=== PATIENT | female | born 1945 | race African-American/Black ===

== ENCOUNTER 2024-06-03 09:25 | Observation (INO) ==
--- NOTE | 2024-06-03 10:30 | Emergency Department Note ---
HPI - SOB/Dyspnea General Chief Complaint: SOB -Shortness of Breath Stated Complaint: SOB Time Seen by Provider: 06/03/24 10:17 Source: patient Mode of arrival: walk-in Limitations: no limitations History of Present Illness HPI Narrative: This is a 79 year old female patient that presents to the ER with c/o SOB and having Low O2 sats in the 70's this morning. Patient states she felt very SOB earlier this morning. Patient denies any chest pain, back pain,abdominal pain, fever, chills, numbness, tingling, weakness or N/V MD elicited complaint: Reports shortness of breath Pertinent past history: Reports COPD Onset (ago): hour(s) (4) Exacerbating factors: Reports nothing Relieving factors: Reports nothing Known history of: Reports COPD Associated symptoms: Reports denies other symptoms Treatment prior to arrival: Reports none Related Data Home Medications Medication Instructions Recorded Confirmed apixaban 5 mg tablet (Eliquis) 5 mg PO Q12H 11/20/23 11/20/23 atorvastatin 40 mg tablet 40 mg PO DAILY 11/20/23 11/20/23 lisinopril 20 mg tablet 20 mg PO DAILY 11/20/23 11/20/23 metoprolol succinate 50 mg 50 mg PO DAILY 11/20/23 11/20/23 tablet,extended release 24 hr nifedipine 60 mg tablet,extended 60 mg PO DAILY 11/20/23 11/20/23 release potassium chloride 10 mEq 10 meq PO DAILY 11/20/23 11/20/23 capsule,extended release semaglutide 0.25 mg or 0.5 mg (2 0.5 mg subcut .weekly 11/20/23 11/20/23 mg/3 mL) subcutaneous pen injector (Ozempic) sitagliptin phosphate 100 mg 100 mg PO DAILY 11/20/23 11/20/23 tablet (Januvia) Allergies Allergy/AdvReac Type Severity Reaction Status Date / Time No Known Drug Allergies Allergy Verified 06/03/24 10:00 Review of Systems Status of ROS 10 or more systems reviewed and unremark able except as noted in history and below Constitutional Denies: fever, chills, change in weight, fatigue, malaise or night sweats Eyes Denies: change in vision, blurry vision, blind spots or light sensitivity Ears, nose, mouth, and throat Denies: throat pain, neck pain, throat swelling, difficulty swallowing, hoarseness, mouth pain or swelling of lips/tongue Cardiovascular Reports: shortness of breath with exertion and shortness of breath when lying down; Denies: chest pain, palpitations, edema, swelling of feet/ankles or lightheadedness Respiratory Reports: shortness of breath; Denies: cough, wheezing, stridor, pain on inspiration, change in phlegm color or coughing up blood Gastrointestinal Denies: abdominal pain, nausea, vomiting, coffee grounds in vomit, heartburn, diarrhea, constipation or bloating Genitourinary Denies: painful urination, urinary frequency, urinary urgency, urinary incontinence, blood in urine or difficulty voiding Musculoskeletal Denies: back pain, neck pain, extremity pain, extremity swelling, joint pain, limited range of motion or joint swelling Integumentary/Breast Denies: rash, itching, redness, skin pain, skin tenderness, skin swelling, sores, new lesion or changing lesion Neurological Denies: headache, numbness in extremities, weakness in extremities or lack of coordination Psychiatric Denies: anxiety, mood swings, panic attacks, change in sleep pattern, hopelessness or loss of interest Endocrine Denies: excessive urination, excessive thirst, fatigue, cold intolerance or excessive sweating Hematologic/Lymphatic Denies: easy bruising, easy bleeding or enlarged lymph nodes Allergic/Immunologic Denies: hives, throat swelling, tongue swelling, facial swelling or wheezing PFSH PFSH Medical History CAD (coronary artery disease) Hyperlipidemia CVA (cerebral vascular accident) TIA (transient ischemic attack) Pacemaker Pulmonary hypertension COPD (chronic obstructive pulmonary disease) Diabetes HTN (hypertension) CHF (congestive heart failure) Surgical History Hx of CABG Social History Smoking status: never smoker Problems where you live: no known problems Highest level of school completed/degree received: College Little interest or pleasure in doing things: not at all Feeling down, depressed, or hopeless: not at all Feel stressed/tense/nervous/anxious/difficulty sleeping: not at all Due to disability, difficulty making decisions: No Exam Constitutional: normal general appearance and no apparent distress Vital Signs - 24 hr 06/03/24 09:55 06/03/24 09:56 Temperature 98 F Pulse Rate 64 Respiratory Rate 20 Blood Pressure 180/78 Pulse Oximetry 95 77 L Oxygen Delivery Me thod Nasal Cannula Room Air Oxygen Flow Rate 3 HENMT: normocephalic, head/scalp atraumatic, hearing grossly normal bilaterally, external ears normal, nasal mucous membranes normal, external nose normal, oral mucous membranes normal and oropharynx normal Eyes: PERRL, EOMs intact bilaterally, conjunctivae normal and no scleral icterus Neck/C-Spine: visual inspection normal and trachea midline Lymph: no lymphadenopathy noted Chest: inspection of chest normal Respiratory: breath sounds equal bilaterally, normal respiratory effort, clear to auscultation bilaterally, no wheezes, no rales, no retractions, no use of accessory muscles and chest percussion normal Cardiovascular: normal heart rate noted, regular rhythm noted, no gallop, no rub, no murmur, no JVD, no clicks, peripheral pulses 2+ throughout and no additional abnormal heart sounds Gastrointestinal: abdomen normal to inspection, abdomen soft to palpation, nontender to palpation, nontender to percussion, nondistended, normoactive bowel sounds, no hepatosplenomegaly, no masses, no pulsatile mass, no ascites and no hernia Genitourinary: no CVA tenderness Back/Pelvis: spine normal to inspection Extremities: normal to inspection, normal to palpation, no tenderness, full ROM, no joint enlargement and no deformity Neurology: no movement abnormality noted, no focal motor deficit noted, no sensory deficits noted, gait normal, speech normal, coordination normal, no fas ciculations noted and GCS normal Psychiatry: mental status grossly normal, oriented x3, thought process normal, cooperative, affect normal, psychomotor activity normal and memory normal Skin: skin color normal Course Course Hospital Course: 1109: due to low O2 sats in the 70's on initial arrival to ER will admit patient to the hospital for further evaluation and treatment, VSS, no s/s of acute distress noted Vital Signs Vital signs: Vital Signs Pulse Oximetry 95 06/03/24 09:55 Oxygen Delivery Method Nasal Cannula 06/03/24 09:55 Oxygen Flow Rate 3 06/03/24 09:55 Temperature 98 F 06/03/24 09:56 Pulse Rate 64 06/03/24 09:56 Respiratory Rate 20 06/03/24 09:56 Blood Pressure 180/78 06/03/24 09:56 Pulse Oximetry 77 L 06/03/24 09:56 Oxygen Delivery Method Room Air 06/03/24 09:56 Oxygen Flow Rate 3 06/03/24 09:55 MDM - SOB/Dyspnea Differential Diagnosis Differential diagnosis: Likely acute exacerbation of chronic obstructive airways disease Medical Records Attestation: I reviewed the patient's medical records. Lab Data Attestation: I reviewed the patient's lab results. Labs: Lab Results 06/03/24 06/03/24 06/03/24 Range/Units 10:18 10:18 10:35 WBC 8.5 (4.3-9.3) K/uL RBC 5.1 (4.00-5.50) M/uL Hgb 13.2 (12.5-15.8) gm/dL Hct 40.6 (35.9-46.7) % MCV 79.8 L (81.0-93.7) fl MCH 25.9 L (27.6-32.2) pg MCHC 32.4 L (33.1-35.3) g/dl RDW 16.2 H (11.4-14.2) % Plt Count 157 (152-353) K/uL MPV 8.4 (6.9-10.8) fl Gran % 64.0 (47.8-71.3) % Lymph % (Auto) 19.1 L (20.0-43.0) % [place] % (Auto) 8.8 (3.6-9.8) % Eos % (Auto) 7.5 H (0.4-2.8) % Baso % (Auto) 0.6 (0.1-0.85) Lymph # (Auto) 1.6 (1.1-3.1) [place] # (Auto) 0.8 L (1.1-3.1) Eos # (Auto) 0.6 H (0.0-0.2) Baso # (Auto) 0.0 (0.0-0.1) Absolute Gran (auto) 5.4 (2.3-6.0) ABG pH 7.42 (7.35-7.45) ABG pCO2 34 L (35-45) mmHg ABG pO2 54 L* 107 (60-100) mmHg ABG HCO3 22.1 (22-26) mmo1/L ABG Total CO2 23.1 mmo1/L ABG O2 Saturation 88 L* (92-100) % ABG Base Excess -1.8 (-2-2) mmo1/L A-a O2 Gradient 53 mmHg Respiratory Index 1.0 (0-1) FiO2 21.0 % Sodium 144 (136-145) mmol/L Potassium 3.8 (3.6-5.2) mmol/L Chloride 109.0 H (98-107) mmol/L Carbon Dioxide 26 (21-32) mmol/L Anion Gap 9.0 (4-14) mEq/L BUN 24 H (7-18) mg/dL Creatinine 1.3 (0.6-1.3) mg/dL Estimated GFR 41.8 (>59.9) Glucose 214 H (70-110) mg/dL Calcium 8.8 (8.5-10.1) mg/dL Total Bilirubin 0.67 (0.0-1.0) mg/dL AST 29 (15-37) U/L ALT 63 (30-65) U/L Alkaline Phosphatase 162 H (50-136) U/L Troponin I High Sens 15.40 (4.0-60.4) ng/L B-Natriuretic Peptide 675.0 H (0-100) pg/mL Total Protein 7.1 (6.4-8.2) g/dL Albumin 2.9 L (3.4-5.0) g/dL ABG Data Attestation: I have reviewed the pertinent ABG results. Imaging Data Imaging ordered: Chest x-ray Attestation: I have reviewed the pertinent imaging results. ECG Data Attestation: I have reviewed the pertinent ECG results. Discharge Plan Discharge Patient Disposition: Admitted As Observation Condition: Stable Chief Complaint: SOB -Shortness of Breath Clinical Impression: Hypoxia, Dyspnea, Chronic obstructive pulmonary disease with (acute) exacerbation Prescriptions: No Action atorvastatin 40 mg tablet 40 mg PO DAILY Patient Comments: TAKE 1 TABLET BY MOUTH EVERY DAY potassium chloride 10 mEq capsule, extended release 10 meq PO DAILY Patient Comments: TAKE 1 CAPSULE BY MOUTH EVERY DAY metoprolol succinate 50 mg tablet extended release 24 hr 50 mg PO DAILY Patient Comments: TAKE 1 TABLET BY MOUTH EVERY DAY lisinopril 20 mg tablet 20 mg PO DAILY Patient Comments: TAKE 1 TABLET BY MOUTH EVERY DAY nifedipine 60 mg tablet extended release 60 mg PO DAILY Patient Comments: TAKE 1 TABLET BY MOUTH EVERY DAY Januvia 100 mg tablet 100 mg PO DAILY Patient Comments: TAKE 1 TABLET BY MOUTH EVERY DAY Eliquis 5 mg tablet 5 mg PO Q12H Patient Comments: TAKE 1 TABLET BY MOUTH TWICE A DAY Ozempic 0.25 mg or 0.5 mg (2 mg/3 mL) pen injector 0.5 mg SUBCUT .weekly Patient Comments: INJECT 0.5 MG SUBCUTANEOUSLY EVERY WEEK Print Language: Kinyarwanda Referrals: Stacy Hanks DO [Primary Care Provider] - Time of Disposition: 11:19
[2024-06-03 10:38] LABS: Basophils%(Percent) Auto 0.6 (0.1-0.85); Eosinophils#(Absolute)Auto 0.6 (0.0-0.2); Eosinophils%(Percent) Auto 7.5 % (0.4-2.8); Granulocytes#(Absolute)- Auto 5.4 (2.3-6.0); Hematocrit 40.6 % (35.9-46.7); Mean Corpuscular Volume 79.8 fl (81.0-93.7); Monocytes #(Absolute)- Auto 0.8 (1.1-3.1); Monocytes %(Percent)- Auto 8.8 % (3.6-9.8); Platelet Count 157 K/uL (152-353); White Blood Count 8.5 K/uL (4.3-9.3)
[2024-06-03 10:40] LABS: Base Excess ABG -1.8 mmo1/L (-2-2); pH ABG 7.42 (7.35-7.45)
[2024-06-03 10:45] LABS: Oxygen Saturation ABG 88 % (92-100); PCO2 ABG 34 mmHg (35-45); PO2 ABG 54 mmHg (60-100)
[2024-06-03 10:48] LABS: Potassium 3.8 mmol/L (3.6-5.2)
[2024-06-03] MEDS ORDERED: FUROSEMIDE 20 MG/2 ML VIAL ONE (11:23)
[2024-06-03] MEDS: FUROSEMIDE 20 MG/2 ML VIAL IV ONE (11:25)
[2024-06-03] MEDS ORDERED: ACETAMINOPHEN 500 MG TABLET PO PRN (13:03)
[2024-06-03] MEDS ORDERED: bisacodyL 10 MG SUPP.RECT PR PRN (14:00)
[2024-06-03] MEDS ORDERED: MAGNESIUM, ALUMINUM HYDROXIDE 30 ML ORAL.SUSP PO PRN (14:00)
[2024-06-03] MEDS: NIFEdipine 30 MG TAB.ER.24 PO SCH (15:26)
[2024-06-03] MEDS: FUROSEMIDE 40 MG TABLET PO SCH (16:26)
[2024-06-03] MEDS: lisinopriL 20 MG TABLET PO SCH (16:37)
[2024-06-03 20:20] LABS: PH BODY FLUID EXCP BLOOD 6.5 (5 - 9); Urine Appearance CLEAR (CLEAR); Urine Blood NEGATIVE (NEG - TRACE); Urine Color YELLOW (STRAW/YELL.); Urine Urobilinogen Normal (NORMAL)
[2024-06-03] MEDS: AMITRIPTYLINE HCL 10 MG TABLET PO SCH (21:45)
[2024-06-03] MEDS: APIXABAN 2.5 MG TABLET PO SCH (21:45)
[2024-06-04 05:37] LABS: Basophils #(Absolute) Auto 0.1 (0.0-0.1); Basophils%(Percent) Auto 0.7 (0.1-0.85); Eosinophils#(Absolute)Auto 0.7 (0.0-0.2); Eosinophils%(Percent) Auto 7.4 % (0.4-2.8); Granulocytes#(Absolute)- Auto 6.3 (2.3-6.0); Hematocrit 41.1 % (35.9-46.7); Mean Corpuscular Volume 79.3 fl (81.0-93.7); Monocytes #(Absolute)- Auto 0.6 (1.1-3.1); Monocytes %(Percent)- Auto 6.2 % (3.6-9.8); Platelet Count 157 K/uL (152-353); White Blood Count 9.7 K/uL (4.3-9.3)
[2024-06-04 05:58] LABS: Potassium 3.5 mmol/L (3.6-5.2)
[2024-06-04] MEDS: ATORVASTATIN CALCIUM 40 MG TABLET PO SCH (09:29)
[2024-06-04] MEDS: EMPAGLIFLOZIN 10 MG TABLET PO SCH (09:29)
[2024-06-04] MEDS: METOPROLOL SUCCINATE 25 MG TAB.ER.24H PO SCH (09:30)
[2024-06-04] MEDS: POTASSIUM CHLORIDE 20 MEQ TAB.ER.PRT PO ONE (09:32)
[2024-06-04 09:43] LABS: Base Excess ABG 0.5 mmo1/L (-2-2); Oxygen Saturation ABG 93 % (92-100); PCO2 ABG 37 mmHg (35-45); PO2 ABG 64 mmHg (60-100); pH ABG 7.43 (7.35-7.45)
[2024-06-04] MEDS: BUMETANIDE 1 MG/4 ML VIAL IVP ONE (11:39)
[2024-06-04] MEDS: IPRATROPIUM/ALBUTEROL SULFATE 3 ML AMPUL.NEB INH SCH (11:52)
--- NOTE | 2024-06-04 16:58 | History & Physical Report ---
H&P: HPI History of Present Illness Chief complaint: COPD EXACERBATION,HYPOXIA Narrative: This is a 79 year old female patient that presents to the ER with c/o SOB and having Low O2 sats in the 70's this morning. Patient states she felt very SOB earlier this morning. Patient denies any chest pain, back pain, abdominal pain, fever, chills, numbness, tingling, weakness or N/V. Admitted to med/surg for observation and treatment. Review of Systems Status of ROS 10 or more systems reviewed and unremark able except as noted in history and below Constitutional Denies: fever, chills, change in weight, fatigue, malaise or night sweats Eyes Denies: change in vision, blurry vision, blind spots or light sensitivity Ears, nose, mouth, and throat Denies: throat pain, neck pain, throat swelling, difficulty swallowing, hoarseness, mouth pain or swelling of lips/tongue Cardiovascular Reports: shortness of breath with exertion and shortness of breath when lying down; Denies: chest pain, palpitations, edema, swelling of feet/ankles or lightheadedness Respiratory Reports: shortness of breath; Denies: cough, wheezing, stridor, pain on inspiration, change in phlegm color or coughing up blood Gastrointestinal Denies: abdominal pain, nausea, vomiting, coffee grounds in vomit, heartburn, diarrhea, constipation, bloating or difficulty swallowing Genitourinary Denies: painful urination, urinary frequency, urinary urgency, urinary incontinence, blood in urine or difficulty voiding Musculoskeletal Denies: back pain, neck pain, extremity pain, extremity swelling, joint pain, limited range of motion or joint swelling Integumentary/Breast Denies: rash, itching, redness, skin pain, skin tenderness, skin swelling, sores, new lesion or changing lesion Neurological Denies: headache, numbness in extremities, weakness in extremities or lack of coordination Psychiatric Denies: anxiety, mood swings, panic attacks, change in sleep pattern, hopelessness or loss of interest Endocrine Denies: excessive urination, excessive thirst, fatigue, cold intolerance or excessive sweating Hematologic/Lymphatic Denies: easy bruising, easy bleeding or enlarged lymph nodes Allergic/Immunologic Denies: hives, throat swelling, tongue swelling, facial swelling or wheezing [facility] Medical History (Updated 06/04/24 @ 16:51 by AYDEE Olsen) CAD (coronary artery disease) Hyperlipidemia CVA (cerebral vascular accident) TIA (transient ischemic attack) Pacemaker Pulmonary hypertension COPD (chronic obstructive pulmonary disease) Diabetes HTN (hypertension) CHF (congestive heart failure) Surgical History Hx of CABG Social History Smoking status: never smoker What is your current living situation: I presently have a place to live Problems where you live: no known problems Highest level of school completed/degree received: high school Little interest or pleasure in doing things: not at all Feeling down, depressed, or hopeless: not at all Feel stressed/tense/nervous/anxious/difficulty sleeping: not at all Due to disability, difficulty making decisions: No Meds Home Medications and Allergies Home Medications Medication Instructions Recorded Confirmed Type apixaban 5 mg tablet (Eliquis) 5 mg PO Q12H 11/20/23 06/03/24 History atorvastatin 40 mg tablet 40 mg PO DAILY 11/20/23 06/03/24 History lisinopril 20 mg tablet 20 mg PO DAILY 11/20/23 06/03/24 History metoprolol succinate 50 mg 50 mg PO DAILY 11/20/23 06/03/24 History tablet,extended release 24 hr nifedipine 60 mg tablet,extended 60 mg PO DAILY 11/20/23 06/03/24 History release potassium chloride 10 mEq 10 meq PO DAILY 11/20/23 06/03/24 History capsule,extended release semaglutide 0.25 mg or 0.5 mg (2 0.5 mg subcut .weekly 11/20/23 06/03/24 History mg/3 mL) subcutaneous pen injector (Ozempic) sitagliptin phosphate 100 mg 100 mg PO DAILY 11/20/23 06/03/24 History tablet (Januvia) amitriptyline 25 mg tablet 25 mg PO BEDTIME 06/03/24 06/03/24 History dapagliflozin propanediol 10 mg 10 mg PO DAILY 06/03/24 06/03/24 History tablet (Farxiga) furosemide 40 mg tablet 40 mg PO DAILY 06/03/24 06/03/24 History Allergies Allergy/AdvReac Type Severity Reaction Status Date / Time No Known Drug Allergies Allergy Verified 06/03/24 10:00 Exam Exam: Patient in khoury's position upon entering room for exam with family member at bedside. Constitutional: abnormal general appearance (disheveled), no apparent distre ss, abnormal body habitus (obese), no limitations and alert Vital Signs - 24 hr 06/03/24 19:54 06/03/24 23:21 06/04/24 03:42 Temperature 97.6 F 97.8 F 97.9 F Pulse Rate [Right Carotid] 60 69 60 Respiratory Rate 19 18 17 Blood Pressure [Le ft Arm] 137/69 122/56 111/46 Pulse Oximetry 93 L 96 97 Oxygen Delivery Me thod Room Air Nasal Cannula Nasal Cannula Oxygen Flow Rate Fraction of Inspir ed Oxygen 06/04/24 07:49 06/04/24 11:51 06/04/24 11:53 Temperature 97.8 F 97.6 F Pulse Rate [Right Carotid] 60 60 Respiratory Rate 19 19 Blood Pressure [Le ft Arm] 129/66 137/59 Pulse Oximetry 90 L 92 L 100 Oxygen Delivery Me thod Nasal Cannula Nasal Cannula Oxygen Flow Rate 3 3 Fraction of Inspir ed Oxygen 06/04/24 11:53 06/04/24 15:48 06/04/24 16:00 Temperature 98.5 F Pulse Rate [Right Carotid] 60 Respiratory Rate 20 Blood Pressure [Le ft Arm] 127/67 Pulse Oximetry 100 100 90 L Oxygen Delivery Me thod Nasal Cannula Room Air Oxygen Flow Rate 3 Fraction of Inspir ed Oxygen 32 HENMT: normocephalic, head/scalp atraumatic, hearing grossly normal bilaterally, external ears normal, nasal mucous membranes normal, external nose normal, oral mucous membranes normal and oropharynx normal Eyes: PERRL, EOMs intact bilaterally, conjunctivae normal and no scleral icterus Neck/C-Spine: visual inspection normal and trachea midline Lymph: no lymphadenopathy noted Chest: inspection of chest normal Respiratory: breath sounds equal bilaterally, normal respiratory effort, auscultation abnormal ([place] coarse throughout), no wheezes, no rales, no re tractions, no use of accessory muscles and chest percussion normal Cardiovascular: normal heart rate noted, regular rhythm noted, no gallop, no rub, no murmur, no JVD, no clicks, peripheral pulses 2+ throughout and no additional abnormal heart sounds Gastrointestinal: abdomen normal to inspection, abdomen soft to palpation, nontender to palpation, nontender to percussion, nondistended, normoactive bowel sounds, no hepatosplenomegaly, no masses, no pulsatile mass, no ascites and no hernia Genitourinary: no CVA tenderness Back/Pelvis: spine normal to inspection Extremities: normal to inspection, normal to palpation, no tenderness, full ROM, no joint enlargement and no deformity Neurology: no movement abnormality noted, no focal motor deficit noted, no sensory deficits noted, gait normal, speech normal, coordination normal, no fasciculations noted and GCS normal Psychiatry: mental status grossly normal, oriented x3, thought process normal, cooperative, affect normal, psychomotor activity normal and memory normal Skin: skin color normal Assessment and Plan Assessment and Plan (1) COPD (chronic obstructive pulmonary disease): Qualifiers: COPD type: COPD with acute exacerbation Qualified Code(s): J44.1 - Chronic obstructive pulmonary disease with (acute) exacerbation Code(s): J44.9 - Chronic obstructive pulmonary disease, unspecified (2) CHF (congestive heart failure): Qualifiers: Heart failure type: unspecified Heart failure chronicity: chronic Qualified Code(s): I50.9 - Heart failure, unspecified Code(s): I50.9 - Heart failure, unspecified (3) HTN (hypertension): Qualifiers: Hypertension type: primary hypertension Qualified Code(s): I10 - Essential (primary) hypertension Code(s): I10 - Essential (primary) hypertension (4) Hypoxia: Code(s): R09.02 - Hypoxemia (5) Dyspnea: Qualifiers: Dyspnea type: shortness of breath Qualified Code(s): R06.02 - Shortness of breath Code(s): R06.00 - Dyspnea, unspecified Plan DuoNebs Breathing Tx Apixaban 5 mg PO Q12H Atorvastatin Calcium 40 mg PO DAILY Lisinopril 20 mg PO DAILY Metoprolol Succinate 50 mg PO DAILY Nifedipine 60 mg PO DAILY Furosemide (Lasix) 40 mg PO DAILY Empagliflozin 10 mg PO DAILY Amitriptyline 25 mg PO BEDTIME Albuterol Sulfate 3 ml INH RQ4 Budesonide 1 mg INH RBID Acetaminophen 500 mg PO Q6H PRN Magnesium Hydroxide 30 ml PO DAILY PRN Bisacodyl 10 mg MD DAILY PRN Insulin Regular per sliding scale SUBQ PRN Potassium Chloride 40 meq PO ONCE Bumetanide 2 mg IVP ONCE Results Labs Labs: CBC WBC 9.7 K/uL (4.3-9.3) H 06/04/24 05:20 RBC 5.2 M/uL (4.00-5.50) 06/04/24 05:20 Hgb 13.3 gm/dL (12.5-15.8) 06/04/24 05:20 Hct 41.1 % (35.9-46.7) 06/04/24 05:20 MCV 79.3 fl (81.0-93.7) L 06/04/24 05:20 MCH 25.6 pg (27.6-32.2) L 06/04/24 05:20 MCHC 32.3 g/dl (33.1-35.3) L 06/04/24 05:20 RDW 16.0 % (11.4-14.2) H 06/04/24 05:20 Plt Count 157 K/uL (152-353) 06/04/24 05:20 MPV 8.2 fl (6.9-10.8) 06/04/24 05:20 Gran % 65.0 % (47.8-71.3) 06/04/24 05:20 Lymph % (Auto) 20.7 % (20.0-43.0) 06/04/24 05:20 [place] % (Auto) 6.2 % (3.6-9.8) 06/04/24 05:20 Eos % (Auto) 7.4 % (0.4-2.8) H 06/04/24 05:20 Baso % (Auto) 0.7 (0.1-0.85) 06/04/24 05:20 Lymph # (Auto) 2.0 (1.1-3.1) 06/04/24 05:20 [place] # (Auto) 0.6 (1.1-3.1) L 06/04/24 05:20 Eos # (Auto) 0.7 (0.0-0.2) H 06/04/24 05:20 Baso # (Auto) 0.1 (0.0-0.1) 06/04/24 05:20 Absolute Gran (auto) 6.3 (2.3-6.0) H 06/04/24 05:20 BMP Sodium 144 mmol/L (136-145) 06/04/24 05:20 Potassium 3.5 mmol/L (3.6-5.2) L 06/04/24 05:20 Chloride 108.0 mmol/L (98-107) H 06/04/24 05:20 Carbon Dioxide 27 mmol/L (21-32) 06/04/24 05:20 Anion Gap 9.0 mEq/L (4-14) 06/04/24 05:20 BUN 14 mg/dL (7-18) 06/04/24 05:20 Creatinine 1.1 mg/dL (0.6-1.3) 06/04/24 05:20 Estimated GFR 51.1 (>59.9) 06/04/24 05:20 Glucose 122 mg/dL (70-110) H 06/04/24 05:20 Calcium 8.4 mg/dL (8.5-10.1) L 06/04/24 05:20 Phosphorus 4.2 mg/dL (2.5-4.9) 06/04/24 05:20 Magnesium 2.0 mg/dL (1.8-2.4) 06/04/24 05:20 Total Bilirubin 0.73 mg/dL (0.0-1.0) 06/04/24 05:20 AST 19 U/L (15-37) 06/04/24 05:20 ALT 48 U/L (30-65) 06/04/24 05:20 Alkaline Phosphatase 159 U/L (50-136) H 06/04/24 05:20 Total Protein 6.7 g/dL (6.4-8.2) 06/04/24 05:20 Albumin 2.8 g/dL (3.4-5.0) L 06/04/24 05:20 Cardiac Enzymes Troponin I High Sens 15.40 ng/L (4.0-60.4) 06/03/24 10:35 Liver Function Total Bilirubin 0.73 mg/dL (0.0-1.0) 06/04/24 05:20 AST 19 U/L (15-37) 06/04/24 05:20 ALT 48 U/L (30-65) 06/04/24 05:20 Alkaline Phosphatase 159 U/L (50-136) H 06/04/24 05:20 Total Protein 6.7 g/dL (6.4-8.2) 06/04/24 05:20 Albumin 2.8 g/dL (3.4-5.0) L 06/04/24 05:20 Urine Urine Color Yellow (STRAW/YELL.) 06/03/24 17:55 Urine Appearance Clear (CLEAR) 06/03/24 17:55 Ur Specific [place] 1.010 (1.001-1.035) 06/03/24 17:55 Urine Protein Negative (NEGATIVE) 06/03/24 17:55 Urine Glucose (UA) 4+ (NORMAL) 06/03/24 17:55 Urine Ketones Negative (NEGATIVE) 06/03/24 17:55 Urine Occult Blood Negative (NEG - TRACE) 06/03/24 17:55 Urine Nitrite Negative (NEGATIVE) 06/03/24 17:55 Urine Bilirubin Negative (NEGATIVE) 06/03/24 17:55 Urine Urobilinogen Normal (NORMAL) 06/03/24 17:55 Ur Leukocyte Esterase Negative (NEGATIVE) 06/03/24 17:55 ABG ABG results: 06/03/24 06/04/24 10:18 09:21 ABG pH 7.42 7.43 ABG pCO2 34 L 37 ABG pO2 107 182 ABG HCO3 22.1 24.6 ABG Total CO2 23.1 25.7 ABG O2 Saturation 88 L* 93 ABG Base Excess -1.8 0.5 Imaging Imaging ordered: Chest x-ray Radiologist's impression: XR CHEST 1V Date of Service: 06/03/24 HISTORY: pain, sob; COMPARISON: December 06, 2023 FINDINGS: The trachea is midline. The cardiac silhouette is mildly enlarged with status post CABG surgery and left-sided pacemaker placement. The lungs are clear without focal infiltrate or effusion. The bony thorax is unremarkable. IMPRESSION: No acute cardiopulmonary disease.
[2024-06-04] MEDS: BUDESONIDE 0.5 MG/2 ML AMPUL.NEB INH SCH (20:23)
[2024-06-05 06:22] LABS: Basophils%(Percent) Auto 0.4 (0.1-0.85); Eosinophils#(Absolute)Auto 0.8 (0.0-0.2); Eosinophils%(Percent) Auto 8.8 % (0.4-2.8); Granulocytes % - Auto 62.4 % (47.8-71.3); Granulocytes#(Absolute)- Auto 5.5 (2.3-6.0); Mean Corpuscular Volume 80.2 fl (81.0-93.7); Monocytes #(Absolute)- Auto 0.6 (1.1-3.1); Monocytes %(Percent)- Auto 6.6 % (3.6-9.8); Platelet Count 164 K/uL (152-353); White Blood Count 8.8 K/uL (4.3-9.3)
[2024-06-05 06:38] LABS: Potassium 3.7 mmol/L (3.6-5.2)
[2024-06-05 08:27] VITALS: RESP 18
[2024-06-05 12:20] VITALS: BP 142/59; PULSE 60; TEMP 98
== END 2024-06-05 15:36 | disposition home or self-care (01) ==
LOC: MS 09:25 → ED 09:25 → MS 13:10
PROVIDERS: ADMIT Nurse Practitioner Family; ATTEND Family Medicine